=== PATIENT | male | born 1950 | race Two or more races ===

== ENCOUNTER 2022-10-21 14:24 | Emergency (ER) | payer OTHER ==
[~2022-10-21] VITALS: Ht 170.2 cm; Wt 74.8 kg
[2022-10-21] MEDS ORDERED: PREDNISOLONE ACE5 ML (14:33)
== END 2022-10-21 16:57 | disposition home or self-care (01) ==
LOC: ER 14:24
DX: S91.321A Laceration with foreign body, right foot, initial encounter (principal); W22.8XXA Striking against or struck by other objects, initial encounter; Y93.9 Activity, unspecified; Y92.9 Unspecified place or not applicable

== ENCOUNTER 2023-03-11 16:08 | Emergency (ER) | payer OTHER ==
[~2023-03-11] VITALS: Ht 167.6 cm; Wt 75.7 kg
[~2023-03-11 16:08] MED LIST: PREDNISOLONE ACE5 ML
[2023-03-11] MEDS ORDERED: [UNRECOGNIZED DRUG - OTHER] OP (17:27)
== END 2023-03-11 18:38 | disposition home or self-care (01) ==
LOC: ER 16:08
DX: Z48.02 Encounter for removal of sutures (principal)

== ENCOUNTER 2024-01-23 00:20 | Emergency (ER) | payer OTHER ==
[~2024-01-23] VITALS: Ht 170.2 cm; Wt 74.8 kg
[~2024-01-23 00:20] MED LIST changes: +[UNRECOGNIZED DRUG - OTHER] OP
[2024-01-23] MEDS ORDERED: TIMOLOL MALEATE5 M4 (00:28)
[2024-01-23] MEDS ORDERED: TOBRAMYCIN/DEXAMETHASONE 3.5 G TUBE OP STA (01:55)
[2024-01-23] MEDS ORDERED: TOBRAMYCIN/DEXAMETHASONE 20 DR/ML DROPS OP ONE (02:30)
[2024-01-23] MEDS ORDERED: TOBRADEX EYE O3.5 GM OP (03:33)
== END 2024-01-23 03:51 ==
LOC: ER 00:21
DX: H11.30 Conjunctival hemorrhage, unspecified eye (principal)